=== PATIENT | female | born 1935 | race Caucasian/White ===

== ENCOUNTER 2017-06-02 07:51 | Emergency (ER) | payer MEDICARE, OTHER ==
[2017-06-02] MEDS ORDERED: Ondansetron INJ* 2 MG/ML VIAL IV ONE (08:23)
[2017-06-02] MEDS ORDERED: Ondansetron INJ* 2 MG/ML VIAL ONE (08:26)
[2017-06-02] MEDS: NS 0.9% 1000 ML* 2,000 ML IV ONE ×2 (08:27→09:39)
[2017-06-02 08:50] LABS: ABS Basophils 0 10^3/ul (0-0.2); ABS Eosinophils 0 10^3/ul (0-0.6); ABS Lymphocytes 0.2 10^3/ul (1.0-4.8); ABS Monocytes 0.3 10^3/ul (0-0.8); ABS Neutrophils 4.8 10^3/ul (1.5-7.7); ABS Nucleated RBC 0 10^3/ul; Eosinophil % 0.1 % (0-6); Hematocrit 34 % (35-47); Hemoglobin 11.6 g/dl (12.0-16.0); Lymphocyte % 4.4 % (25-47); Mean Corpuscular HGB Conc 34 g/dl (31-36); Mean Corpuscular Hemoglobin 31 pg (27-31); Mean Corpuscular Volume 93 fL (80-97); Mean Platelet Volume 8 um3 (7.4-10.4); Nucleated Red Blood Cells % 0; Platelet Count 194 10^3/ul (150-450); Red Cell Distribution Width 14 % (10.5-15); White Blood Count 5.4 10^3/ul (3.5-10.8)
[2017-06-02 08:59] LABS: INR 0.95 (0.77-1.02)
[2017-06-02 09:10] LABS: EGFR Non-African American 78.8 (>60)
[2017-06-02] MEDS ORDERED: Magnesium Sulfate 2 GM IV* 2 GM/50 ML BAG IVPB ONE (09:34)
[2017-06-02 10:31] LABS: Urine Appearance Clear; Urine Blood 1+ (Negative); Urine Color Yellow; Urine Ketones 1+ (Negative); Urine Protein Negative (Negative); Urine Urobilinogen Negative (Negative)
[2017-06-02] MEDS ORDERED: NS 0.9% 1000 ML* 1,000 ML IV ONE (11:39)
[2017-06-02 14:04] VITALS: BP 111/52
--- NOTE | 2017-06-02 17:24 | ED ---
Nicolas Stoner Tiffany, scribed for Greg Goodson MD on 06/02/17 at 0820 . Complex/Multi-Sys Presentation - HPI Summary HPI Summary: The patient is an 81 year old F BIBA c/o generalized weakness since 03:00 today. Symptoms aggravated by nothing. Symptoms alleviated by nothing. Reports lightheadedness, diarrhea, abdominal cramps, and nausea. Denies fever, bloody stool, myalgia, and loss of consciousness. Patient says she felt tired and had a decreased appetite yesterday. - History Of Current Complaint Chief Complaint: EDWeakness Time Seen by Provider: 06/02/17 08:08 Hx Obtained From: Patient Onset/Duration: Lasting Hours - 03:00 today, Still Present Timing: Constant Aggravating Factor(s): Nothing Alleviating Factor(s): Nothing Associated Signs And Symptoms: Positive: Other - lightheadedness, diarrhea, abdominal cramps, and nausea; NEGATIVE: fever, bloody stool, myalgia, and loss of consciousness - Allergies/Home Medications Allergies/Adverse Reactions: Allergies Allergy/AdvReac Type Severity Reaction Status Date / Time ibuprofen Allergy Itching Verified 06/02/17 09:02 shellfish derived Allergy Swelling Verified 06/02/17 09:02 Of Face,Lips,& Throat Home Medications: Home Medications Andrew/D3/Mag11/Zinc/[employer] Officer/Luis Angel/Bor [Caltrate 600+D Plus Tablet] 1 each PO DAILY [History Confirmed 06/02/17] Levothyroxine TAB* [Synthroid TAB*] 25 mcg PO DAILY 06/02/17 [History Confirmed 06/02/17] Omeprazole CAP* [Prilosec CAP* 20 MG] 20 mg PO DAILY 06/02/17 [History Confirmed 06/02/17] PMH/Surg Hx/FS Hx/Imm Hx Previously Healthy: No Endocrine/Hematology History: Reports: Hx Anticoagulant Therapy - aspirin Cardiovascular History: Reports: Hx Rheumatic Fever, Hx Valvular Heart Disease Musculoskeletal History: Comment Only: Other Musculoskeletal History - Right rotator cuff and knees artheritis Sensory History: Reports: Hx Contacts or Glasses, Hx Hearing Problem Opthamlomology History: Reports: Hx Contacts or Glasses - Surgical History Surgery Procedure, Year, and Place: Tonsils as child Hx Anesthesia Reactions: No - Immunization History Date of Tetanus Vaccine: Unk Date of Influenza Vaccine: None Infectious Disease History: No Infectious Disease History: Denies: History Other Infectious Disease, Traveled Outside the [place] in Last 30 Days - Family History Known Family History: Positive: Other - Denies relevant history - Social History Alcohol Use: None Hx Substance Use: No Substance Use Type: Reports: None Hx Tobacco Use: Yes Smoking Status (MU): Former Smoker Review of Systems Negative: Fever Gastrointestinal: Negative - Bloody stool Positive: Diarrhea, Nausea, Other - Abdominal cramps Negative: Myalgia Neurological: Negative - LOC, Other - Lightheadedness Positive: Weakness All Other Systems Reviewed And Are Negative: Yes Physical Exam - Summary Physical Exam Summary: General: well-appearing, no pain distress Skin: warm, color reflects adequate perfusion, dry Head: normal Eyes: EOMI, MARANDA ENT: oral mucosa dry Neck: supple, nontender Respiratory: CTA, breath sounds present Cardiovascular: RRR Abdomen: soft, nontender Bowel: present Musculoskeletal: normal, strength/ROM intact Neurological: normal, sensory/motor intact, A&O x3 Psychological: affect/mood appropriate Triage Information Reviewed: Yes Vital Signs On Initial Exam: Initial Vitals Temp Pulse Resp BP Pulse Ox 99.2 F 76 19 96/49 96 06/02/17 07:56 06/02/17 07:56 06/02/17 07:56 06/02/17 07:56 06/02/17 07:56 Vital Signs Reviewed: Yes Diagnostics - Vital Signs Vital Signs Temp Pulse Resp BP Pulse Ox 06/02/17 07:56 99.2 F 76 19 96/49 96 - Laboratory Lab Results: Lab Results 06/02/17 06/02/17 06/02/17 Range/Units 08:36 08:36 08:36 WBC (3.5-10.8) 10^3/ul RBC (4.0-5.4) 10^6/ul Hgb (12.0-16.0) g/dl Hct (35-47) % MCV (80-97) fL MCH (27-31) pg MCHC (31-36) g/dl RDW (10.5-15) % Plt Count (150-450) 10^3/ul MPV (7.4-10.4) um3 Neut % (Auto) (38-83) % Lymph % (Auto) (25-47) % Walker % (Auto) (0-7) % Eos % (Auto) (0-6) % Baso % (Auto) (0-2) % Absolute Neuts (auto) (1.5-7.7) 10^3/ul Absolute Lymphs (auto) (1.0-4.8) 10^3/ul Absolute Monos (auto) (0-0.8) 10^3/ul Absolute Eos (auto) (0-0.6) 10^3/ul Absolute Basos (auto) (0-0.2) 10^3/ul Absolute Nucleated RBC 10^3/ul Nucleated RBC % INR (Anticoag Therapy) 0.95 (0.77-1.02) APTT 27.7 (26.0-36.3) seconds Sodium 132 L (133-145) mmol/L Potassium 3.5 (3.5-5.0) mmol/L Chloride 101 (101-111) mmol/L Carbon Dioxide 25 (22-32) mmol/L Anion Gap 6 (2-11) mmol/L BUN 15 (6-24) mg/dL Creatinine 0.71 (0.51-0.95) mg/dL Est GFR ( Amer) 101.4 (>60) Est GFR (Non-Af Amer) 78.8 (>60) BUN/Creatinine Ratio 21.1 H (8-20) Glucose 103 H (70-100) mg/dL Lactic Acid (0.5-2.0) mmol/L Calcium 9.1 (8.6-10.3) mg/dL Magnesium 1.6 L (1.9-2.7) mg/dL Total Bilirubin 0.50 (0.2-1.0) mg/dL AST 37 (13-39) U/L ALT 21 (7-52) U/L Alkaline Phosphatase 40 (34-104) U/L Troponin I 0.01 (<0.04) ng/mL C-Reactive Protein 5.86 H (< 5.00) mg/L B-Natriuretic Peptide 51 ( - 100) pg/mL Total Protein 6.6 (6.4-8.9) g/dL Albumin 3.7 (3.2-5.2) g/dL Globulin 2.9 (2-4) g/dL Albumin/Globulin Ratio 1.3 (1-3) Lipase 48 (11.0-82.0) U/L TSH 1.88 (0.34-5.60) mcIU/mL Urine Color Urine Appearance Urine pH (5-9) Ur Specific Maury (1.010-1.030) Urine Protein (Negative) Urine Ketones (Negative) Urine Blood (Negative) Urine Nitrate (Negative) Urine Bilirubin (Negative) Urine Urobilinogen (Negative) Ur Leukocyte Esterase (Negative) Urine WBC (Auto) (Absent) Urine RBC (Auto) (Absent) Ur Squamous Epith Cells (Absent) Urine Bacteria (Absent) Urine Glucose (Negative) Influenza A (Rapid) (Negative) Influenza B (Rapid) (Negative) 06/02/17 06/02/17 06/02/17 Range/Units 08:36 08:36 08:45 WBC 5.4 (3.5-10.8) 10^3/ul RBC 3.70 L (4.0-5.4) 10^6/ul Hgb 11.6 L (12.0-16.0) g/dl Hct 34 L (35-47) % MCV 93 (80-97) fL MCH 31 (27-31) pg MCHC 34 (31-36) g/dl RDW 14 (10.5-15) % Plt Count 194 (150-450) 10^3/ul MPV 8 (7.4-10.4) um3 Neut % (Auto) 89.4 H (38-83) % Lymph % (Auto) 4.4 L (25-47) % Walker % (Auto) 5.9 (0-7) % Eos % (Auto) 0.1 (0-6) % Baso % (Auto) 0.2 (0-2) % Absolute Neuts (auto) 4.8 (1.5-7.7) 10^3/ul Absolute Lymphs (auto) 0.2 L (1.0-4.8) 10^3/ul Absolute Monos (auto) 0.3 (0-0.8) 10^3/ul Absolute Eos (auto) 0 (0-0.6) 10^3/ul Absolute Basos (auto) 0 (0-0.2) 10^3/ul Absolute Nucleated RBC 0 10^3/ul Nucleated RBC % 0 INR (Anticoag Therapy) (0.77-1.02) APTT (26.0-36.3) seconds Sodium (133-145) mmol/L Potassium (3.5-5.0) mmol/L Chloride (101-111) mmol/L Carbon Dioxide (22-32) mmol/L Anion Gap (2-11) mmol/L BUN (6-24) mg/dL Creatinine (0.51-0.95) mg/dL Est GFR ( Amer) (>60) Est GFR (Non-Af Amer) (>60) BUN/Creatinine Ratio (8-20) Glucose (70-100) mg/dL Lactic Acid 0.9 (0.5-2.0) mmol/L Calcium (8.6-10.3) mg/dL Magnesium (1.9-2.7) mg/dL Total Bilirubin (0.2-1.0) mg/dL AST (13-39) U/L ALT (7-52) U/L Alkaline Phosphatase (34-104) U/L Troponin I (<0.04) ng/mL C-Reactive Protein (< 5.00) mg/L B-Natriuretic Peptide ( - 100) pg/mL Total Protein (6.4-8.9) g/dL Albumin (3.2-5.2) g/dL Globulin (2-4) g/dL Albumin/Globulin Ratio (1-3) Lipase (11.0-82.0) U/L TSH (0.34-5.60) mcIU/mL Urine Color Urine Appearance Urine pH (5-9) Ur Specific Maury (1.010-1.030) Urine Protein (Negative) Urine Ketones (Negative) Urine Blood (Negative) Urine Nitrate (Negative) Urine Bilirubin (Negative) Urine Urobilinogen (Negative) Ur Leukocyte Esterase (Negative) Urine WBC (Auto) (Absent) Urine RBC (Auto) (Absent) Ur Squamous Epith Cells (Absent) Urine Bacteria (Absent) Urine Glucose (Negative) Influenza A (Rapid) Negative (Negative) Influenza B (Rapid) Negative (Negative) 06/02/17 Range/Units 10:15 WBC (3.5-10.8) 10^3/ul RBC (4.0-5.4) 10^6/ul Hgb (12.0-16.0) g/dl Hct (35-47) % MCV (80-97) fL MCH (27-31) pg MCHC (31-36) g/dl RDW (10.5-15) % Plt Count (150-450) 10^3/ul MPV (7.4-10.4) um3 Neut % (Auto) (38-83) % Lymph % (Auto) (25-47) % Walker % (Auto) (0-7) % Eos % (Auto) (0-6) % Baso % (Auto) (0-2) % Absolute Neuts (auto) (1.5-7.7) 10^3/ul Absolute Lymphs (auto) (1.0-4.8) 10^3/ul Absolute Monos (auto) (0-0.8) 10^3/ul Absolute Eos (auto) (0-0.6) 10^3/ul Absolute Basos (auto) (0-0.2) 10^3/ul Absolute Nucleated RBC 10^3/ul Nucleated RBC % INR (Anticoag Therapy) (0.77-1.02) APTT (26.0-36.3) seconds Sodium (133-145) mmol/L Potassium (3.5-5.0) mmol/L Chloride (101-111) mmol/L Carbon Dioxide (22-32) mmol/L Anion Gap (2-11) mmol/L BUN (6-24) mg/dL Creatinine (0.51-0.95) mg/dL Est GFR ( Amer) (>60) Est GFR (Non-Af Amer) (>60) BUN/Creatinine Ratio (8-20) Glucose (70-100) mg/dL Lactic Acid (0.5-2.0) mmol/L Calcium (8.6-10.3) mg/dL Magnesium (1.9-2.7) mg/dL Total Bilirubin (0.2-1.0) mg/dL AST (13-39) U/L ALT (7-52) U/L Alkaline Phosphatase (34-104) U/L Troponin I (<0.04) ng/mL C-Reactive Protein (< 5.00) mg/L B-Natriuretic Peptide ( - 100) pg/mL Total Protein (6.4-8.9) g/dL Albumin (3.2-5.2) g/dL Globulin (2-4) g/dL Albumin/Globulin Ratio (1-3) Lipase (11.0-82.0) U/L TSH (0.34-5.60) mcIU/mL Urine Color Yellow Urine Appearance Clear Urine pH 6.0 (5-9) Ur Specific Maury 1.010 (1.010-1.030) Urine Protein Negative (Negative) Urine Ketones 1+ A (Negative) Urine Blood 1+ A (Negative) Urine Nitrate Negative (Negative) Urine Bilirubin Negative (Negative) Urine Urobilinogen Negative (Negative) Ur Leukocyte Esterase 2+ A (Negative) Urine WBC (Auto) 1+(6-10/hpf) A (Absent) Urine RBC (Auto) Trace(0-2/hpf) (Absent) Ur Squamous Epith Cells Present A (Absent) Urine Bacteria Absent (Absent) Urine Glucose Negative (Negative) Influenza A (Rapid) (Negative) Influenza B (Rapid) (Negative) Result Diagrams: 06/02/17 08:36 06/02/17 08:36 Lab Statement: Any lab studies that have been ordered have been reviewed, and results considered in the medical decision making process. Re-Evaluation - Re-Evaluation First Eval Re-Evaluation Time: 16:55 Change: Improved Comment: Patient feels better. Agreeable to discharge. Complex Multi-Symp Course/Dx Course Of Treatment: BP noted and advised to follow up with PCP. Medications reviewed. llergies noted. IMPROVED IN ED WITH IVF. DISCUSSED RESULTS WITH PATIENT AND FAMILY. PATIENT AMBULATED IN ED. DISCUSSED ADMISSION; PATIENT WISHES TO GO HOME. - Diagnoses Provider Diagnoses: Diarrhea, Dehydration Discharge - Discharge Plan Condition: Stable Disposition: HOME Patient Education Materials: Dehydration (ED), Acute Diarrhea (ED) Referrals: Ashish Talbot MD [Primary Care Provider] - Additional Instructions: FOLLOW UP WITH YOUR DOCTOR. RETURN TO THE EMERGENCY DEPARTMENT FOR ANY WORSENING OF YOUR CONDITION OR QUESTIONS OR CONCERNS. The documentation as recorded by the Nicolas joseph Tiffany accurately reflects the service I personally performed and the decisions made by me, Greg Goodson MD.
== END 2017-06-02 14:03 | disposition home or self-care (01) ==
LOC: ED 07:51
DX: R19.7 Diarrhea, unspecified (principal); E86.0 Dehydration; Z88.6 Allergy status to analgesic agent; Z87.891 Personal history of nicotine dependence
CPT/HCPCS: 36415; 80053; 81003; 81015; 83605; 83690; 83735; 83880; 84443; 84484; 85025; 85610; 85730; 86140; 87040; 87086; 87502; 96361; 96365; 96375; 99285; J2405; J3475

== ENCOUNTER 2023-01-27 12:13 | Inpatient (IN) ==
[2023-01-27] MEDS ORDERED: Iodixanol (CONTRAST) 320 MG/ML 100 ML SDV IV ONE (12:30)
[2023-01-27 13:16] LABS: ABS Eosinophils 0.1 10^3/uL (0.0-0.5); ABS Lymphocytes 1.1 10^3/uL (1.0-4.8); ABS Monocytes 0.4 10^3/uL (0.0-0.9); ABS Neutrophils 4.8 10^3/uL (1.5-7.6); ABS Nucleated RBC 0.01 10^3/ul; Eosinophil % 0.8 %; Hematocrit 36.1 % (35-45); Hemoglobin 12.2 g/dL (11.5-14.3); Lymphocyte % 17.2 %; Mean Corpuscular Hemoglobin 32.1 pg (27-33); Mean Corpuscular Hgb Conc 33.9 g/dL (31-36); Mean Corpuscular Volume 94.7 fL (80-97); Mean Platelet Volume 8.6 fL (7.5-11.2); Nucleated Red Blood Cells % 0.2 %/100WBC (0.0-0.8); Platelet Count 233 10^3/uL (150-450); Red Blood Count 3.81 10^6/uL (3.63-4.92); Red Cell Distribution Width 14.1 % (12-17); White Blood Count 6.4 10^3/uL (3.8-11.8)
[2023-01-27 13:23] LABS: Albumin 4.1 g/dL (3.2-5.2); Albumin/Globulin Ratio 1.3 (1-3); Calcium 9.8 mg/dL (8.6-10.3); Creatinine, Serum 0.94 mg/dL (0.51-0.95); Direct Bilirubin 0.1 mg/dL (0.03-0.18); Globulin 3.1 g/dL (2-4); HDL Cholesterol 62.9 mg/dL; Indirect Bilirubin 0.3 mg/dL (0.3-1.0); Potassium 3.9 mmol/L (3.5-5.0); Total Bilirubin 0.4 mg/dL (0.2-1.0); Total Protein 7.2 g/dL (6.4-8.9); eGFR CKD-EPI 58.4 (>60)
[2023-01-27 13:38] LABS: Activated Partial Thrombo Time 34.7 seconds (26.0-38.0); INR 1.03 (0.83-1.13)
[2023-01-27 13:52] LABS: Urine Appearance Turbid; Urine Bilirubin Negative (Negative); Urine Blood Negative (Negative); Urine Color Yellow; Urine Glucose Negative (Negative); Urine Ketones Negative (Negative); Urine Nitrite Negative (Negative); Urine Protein Negative (Negative); Urine Specific Gravity 1.012 (1.002-1.030); Urine Urobilinogen Negative (Negative)
[2023-01-27] MEDS ORDERED: LORazepam 2 mg VIAL 1 ml IV PUSH ONE (15:06)
[2023-01-27] MEDS ORDERED: Lorazepam PYXIS KEY PRN (15:06)
[2023-01-27] MEDS ORDERED: Albuterol HFA INHALER 8 gm MDI INH PRN (16:12)
[2023-01-28] MEDS: Cholecalciferol (VIT D3) 400 units TAB PO SCH (08:03)
[2023-01-28] MEDS: Fluticasone NASAL SPRAY 50MCG 16 gm SPRAY BTL BOTH NARES SCH (08:07)
[2023-01-29] MEDS: Cholecalciferol (VIT D3) 400 units TAB PO SCH (09:09)
[2023-01-29] MEDS: Fluticasone NASAL SPRAY 50MCG 16 gm SPRAY BTL BOTH NARES SCH (09:12)
[2023-01-29 14:55] VITALS: BP 112/49
== END 2023-01-29 16:50 | disposition home or self-care (01) | DRG 65 ==
LOC: ED 12:13 → EDHOLD 14:45 → SUATTDRO 14:45 → MEDTELE 21:26
PROVIDERS: ADMIT Student in an Organized Health Care Education/Training Program; ATTEND Internal Medicine

== ENCOUNTER 2024-02-24 15:48 | Observation (INO) ==
[2024-02-24 16:07] LABS: ABS Eosinophils 0.1 10^3/uL (0.0-0.5); ABS Lymphocytes 1.4 10^3/uL (1.0-4.8); ABS Monocytes 0.5 10^3/uL (0.0-0.9); ABS Neutrophils 3.5 10^3/uL (1.5-7.6); Eosinophil % 2.2 %; Hemoglobin 11.9 g/dL (11.5-14.3); Lymphocyte % 24.6 %; Mean Corpuscular Hemoglobin 32.5 pg (27-33); Mean Corpuscular Hgb Conc 34.1 g/dL (31-36); Mean Corpuscular Volume 95.2 fL (80-97); Mean Platelet Volume 8.2 fL (7.5-11.2); Nucleated Red Blood Cells % 0.1 %/100WBC (0.0-0.8); Platelet Count 218 10^3/uL (150-450); Red Blood Count 3.67 10^6/uL (3.63-4.92); Red Cell Distribution Width 13.7 % (12-17); White Blood Count 5.5 10^3/uL (3.8-11.8)
[2024-02-24 16:20] LABS: INR 1.04 (0.85-1.14)
[2024-02-24] MEDS: Iodixanol 320 (CONTRAST) 100 ML SDV IV ONE (16:27)
[2024-02-24 16:37] LABS: Albumin 4.1 g/dL (3.2-5.2); Albumin/Globulin Ratio 1.6 (1-3); Calcium 9.6 mg/dL (8.6-10.3); Creatinine, Serum 0.88 mg/dL (0.51-0.95); Direct Bilirubin 0.1 mg/dL (0.03-0.18); Globulin 2.6 g/dL (2-4); HDL Cholesterol 63.2 mg/dL; Indirect Bilirubin 0.3 mg/dL (0.3-1.0); Potassium 4.3 mmol/L (3.5-5.0); Total Bilirubin 0.4 mg/dL (0.2-1.0); Total Protein 6.7 g/dL (6.4-8.9); eGFR CKD-EPI 62.8 (>60)
[2024-02-24 16:50] LABS: Urine Appearance Clear; Urine Bilirubin Negative (Negative); Urine Blood Negative (Negative); Urine Color Colorless; Urine Glucose Negative (Negative); Urine Ketones Negative (Negative); Urine Nitrite Negative (Negative); Urine Protein Negative (Negative); Urine Specific Gravity 1.024 (1.002-1.030); Urine Urobilinogen Negative (Negative); Urine pH 7.5 (5.0-8.0)
[2024-02-24] MEDS ORDERED: Sulfur Hexaflouride MICROSPHR 25 MG VIAL IV PRN (16:53)
[2024-02-24] MEDS: Enoxaparin 40 MG/0.4 ML SYR SUBCUT SCH (18:24)
[2024-02-24] MEDS ORDERED: Albuterol HFA INHALER 8 gm MDI INH PRN (18:40)
[2024-02-25] MEDS: Aspirin EC 81 mg TAB.EC (enteric coated) PO SCH (09:40)
[2024-02-26 09:31] VITALS: BP 122/61
== END 2024-02-26 12:25 | disposition home or self-care (01) ==
LOC: EDHOLD 15:48 → ED 15:48 → MED 02-25 13:36
PROVIDERS: ADMIT Hospitalist; ATTEND Hospitalist